=== PATIENT | female | born 1990 | race Caucasian/White ===

== ENCOUNTER → 2018-01-07 12:25 | Outpatient (CLI) | payer BC, SELFPAY ==
--- NOTE | 2018-01-07 12:34 | US_ITS ---
STUDY: SECOND AND THIRD TRIMESTER OBSTETRICAL ULTRASOUND REASON FOR EXAM: Female, 28 years old. Routine survey. LMP: August 23, 2017. TECHNIQUE: Transabdominal PRIOR ULTRASOUND: None. FINDINGS: There is a single intrauterine fetus. The fetus is in an transverse lie with the head on the maternal left side. There is demonstrated cardiac activity with a heart rate of 139 bpm. There is a normal amniotic fluid volume. The largest amniotic fluid pocket measures 5.1 cm x 4.6 cm. The amniotic fluid index (ZEB) is within normal limits. The placenta is posterior in location and is not low lying. There are Grade 0 placental changes. The cervix measures 3.1 cm in length. The bilateral adnexal regions are normal. BIOMETRY: BPD: 3.95 cm: 18 weeks, 1 days HC: 16.46 cm: 90 weeks, 2 days AC: 15.75 cm: 21 weeks, 0 days FL: 3.01 cm: 19 weeks, 3 days CI: 66% FL/BPD: 76% FL/HC: FL/AC: 19% HC/AC: 1.05 age by current US: 19 weeks, 4 days. NARESH by current US: May 30, 2018. Estimated weight: 325 grams, +/- 47 grams, 69 %. Age by LMP: 19 weeks, 4 days. NARESH by LMP: May 30, 2018. ANATOMY: Gender: Male Cranium: Normal lateral ventricles. Normal choroid plexus. Normal cerebellum. Normal cisterna magna. Normal face, nose and lips. Chest: Normal 4-chamber heart. Abdomen/Pelvis: Normal diaphragm. Normal stomach. Normal abdominal wall. Normal cord insertion. Normal 3 vessel cord. Normal kidneys. Normal bladder. Spine: Normal cervical spine. Normal thoracic spine. Normal lumbar spine. Normal sacrum. Extremities: Normal bilateral upper extremities. Normal bilateral lower extremities. US/OB Anatomy Scan IMPRESSION: Single live intrauterine gestation with a mean gestational age of 19 weeks and 4 days. Electronically Signed: Jose J House MD at 15:49 EDT Tel [phone], Service support ,
[2018-01-09 10:16] LABS: AFP, Tumor Marker 78.2 ng/mL (0.0-8.3)
== END ==
PROVIDERS: Family Provider Family Medicine; PCP Family Medicine; Visit Provider Obstetrics & Gynecology
DX: O09.292 Supervision of pregnancy with other poor reproductive or obstetric history, second trimester (principal); Z36.3 Encounter for antenatal screening for malformations; Z3A.00 Weeks of gestation of pregnancy not specified
CPT/HCPCS: 36415; 76805; 82105